=== PATIENT | female | born 1970 | race Caucasian/White ===

== ENCOUNTER 2021-06-17 11:08 | Emergency (ER) | payer OTHER ==
[~2021-06-17] VITALS: Ht 162.6 cm; Wt 79.8 kg
[2021-06-17 11:58] LABS: HEMATOCRIT 41.8 % (37.0-47.0); HEMOGLOBIN 14.3 gm/dL (12.0-15.0); MCH 28.2 pg (26.0-34.0); MCHC 34.1 g/dL (28.0-37.0); MCV 82.8 fL (80.0-100.0); PLATELET COUNT 117 thou/uL (150-400); RBC 5.05 mil/uL (4.20-5.00); RDW 13.9 % (10.5-14.5); WBC 2.9 thou/uL (4.0-11.0)
[2021-06-17 12:06] LABS: ANION GAP 8 mmol/L (7-16); BUN 14 mg/dL (7-18); CHLORIDE 106 mmol/L (98-107); CO2 28 mmol/L (21-32); CREATININE 0.7 mg/dL (0.6-1.0); GLUCOSE 107 mg/dL (74-106); POTASSIUM 3.7 mmol/L (3.5-5.1); SODIUM 142 mmol/L (136-145)
[2021-06-17 12:16] LABS: ALBUMIN 3.4 g/dL (3.4-5.0); SGOT 39 U/L (15-37); SGPT 73 U/L (14-59); TOTAL BILIRUBIN 0.4 mg/dL (0.2-1.0); TROPONIN-I <0.06 ng/mL (<0.06)
[2021-06-17 12:34] LABS: ABSOLUTE NEUTROPHILS 1.2 thou/uL (1.4-8.2); ATYPICAL LYMPHS 1 %; PLATELET ESTIMATE NORMAL
[2021-06-17 13:01] LABS: URINE BILIRUBIN NEGATIVE (Negative); URINE BLOOD NEGATIVE (Negative); URINE CLARITY CLEAR; URINE COLOR YELLOW; URINE GLUCOSE-RANDOM* NEGATIVE (Negative); URINE KETONES NEGATIVE (Negative); URINE LEUKOCYTES-REFLEX NEGATIVE (Negative); URINE NITRITE-REFLEX NEGATIVE (Negative); URINE PROTEIN (DIPSTICK) NEGATIVE (Negative); URINE SPECIFIC GRAVITY <= 1.005 (1.005-1.035); URINE UROBILINOGEN 0.2 E.U./dl (0.2-1.0)
--- NOTE | 2021-06-17 14:15 | EKG ---
[address] [address] ELECTROCARDIOGRAM REPORT Name: BEAR NORRIS Room #: REG [facility]#: [id number] Admission: 06/17/21 Attend Phys: Discharge: Date of : 72 Report #: [id number] [facility] ED Test Date: 2021-06-17 Test Time: 11:34:21 Pat Name: BEAR NORRIS Department: Room: Gender: F Flat Ironer: MPALIZY : 1970 Requested By: Ching Abraham Order Number: [id number] MD: Conner Singleton Measurements Intervals [place] Rate: 62 P: 5 [place]: 172 QRS: -2 QRSD: 90 T: 2 QT: 395 QTc: 401 Interpretive Statements Sinus rhythm No previous ECG available for comparison Electronically Signed On 06-17-2021 14:14:49 CDT by Conner Singleton [email or web address] <ELECTRONICALLY SIGNED> By: Conner Singleton MD, [facility] 06/17/21 1414 1134 1134 Conner Singleton MD, FACC /EPI
[2021-06-17 14:27] VITALS: BP 149/89
[2021-06-17] MEDS ORDERED: PROAIR HFA8.5 GM INH (14:28)
== END 2021-06-17 14:46 | disposition home or self-care (01) ==
LOC: ER 11:08
PROVIDERS: Physician Assistant
DX: U07.1 COVID-19 (principal); R55 Syncope and collapse; R53.1 Weakness; E86.0 Dehydration; Z98.890 Other specified postprocedural states; Z90.710 Acquired absence of both cervix and uterus; Z90.89 Acquired absence of other organs